=== PATIENT | female | born 2000 | race African-American/Black ===

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

== ENCOUNTER 2023-08-13 08:52 | Emergency (ER) | payer MEDICAID, OTHER ==
[~2023-08-13] VITALS: Ht 175.3 cm; Wt 85.0 kg
[2023-08-13 08:59] VITALS: BP 122/68; PULSE 66; RESP 16; TEMP 98.9; O2SAT 100
[2023-08-13 10:02] LABS: CLARITY URINE CLEAR (CLEAR); COLOR URINE YELLOW (YELLOW); GLUCOSE URINE NEGATIVE (NEGATIVE); KETONES URINE NEGATIVE (NEGATIVE); LEUKOCYTE ESTERASE URINE NEGATIVE (NEGATIVE); NITRITE URINE NEGATIVE (NEGATIVE); OCCULT BLOOD URINE NEGATIVE (NEGATIVE); PROTEIN URINE NEGATIVE (NEGATIVE)
[2023-08-13] MEDS ORDERED: METR-167 MT (11:07)
[2023-08-13] MEDS ORDERED: FLUC100T MT (11:07)
[2023-08-14 19:06] LABS: CHLAMYDIA TRACHOMATIS NAA Negative (Negative); NEISSERIA GONORRHOEAE NAA Negative (Negative)
== END 2023-08-13 11:30 | disposition home or self-care (01) ==
LOC: ER 08:52
DX: N76.0 Acute vaginitis (principal); Z98.890 Other specified postprocedural states
CPT/HCPCS: 87491; 87591; 81003; 81025; 87210; 99283; Z7610